=== PATIENT | female | born 1995 | race American Indian/Alaskan Native ===

== ENCOUNTER → 2019-05-03 10:34 | Outpatient (CLI) | payer OTHER, SELFPAY ==
[2019-05-03 13:13] LABS: Urine N gonorrhoeae NOT DETECTED
[2019-05-03 13:45] LABS: Urine Chlamydia DETECTED
== END ==
PROVIDERS: PCP Physician Assistant; Visit Provider Physician Assistant
DX: R30.0 Dysuria (principal)
CPT/HCPCS: 87491; 87591

== ENCOUNTER 2020-05-27 10:36 | Emergency (ER) | payer OTHER, SELFPAY ==
[2020-05-27 10:38] VITALS: BP 123/91; PULSE 100; RESP 15; TEMP 37.1; O2SAT 99; BMI 23.0
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
[2020-05-27] MEDS: BACITRACIN OINT 0.9 GM PCKT 1 APPLIC TOP (12:43)
[2020-05-27] MEDS: IBUPROFEN 400 MG TABLET 800 MG PO (12:43)
[2020-05-27] MEDS: TET,DIPH,PERTUSS(ACELL),VAC/PF 0.5 ML SYRINGE IM (12:44)
[2020-05-27 14:04] VITALS: BP 120/70; PULSE 85; RESP 16; O2SAT 99
== END 2020-05-27 14:05 | disposition home or self-care (01) ==
PROVIDERS: Emergency Provider Nurse Practitioner; PCP Physician Assistant
DX: S81.811A Laceration without foreign body, right lower leg, initial encounter (principal); S62.101A Fracture of unspecified carpal bone, right wrist, initial encounter for closed fracture; V19.9XXA Pedal cyclist (driver) (passenger) injured in unspecified traffic accident, initial encounter; Z23 Encounter for immunization
CPT/HCPCS: 29125; 73110; 73590; 90471; 99283; 99284; 90715

== ENCOUNTER → 2020-10-02 14:00 | Outpatient (CLI) | payer MEDICAID, OTHER, SELFPAY ==
[2020-10-02 15:26] LABS: Appearance Urine UA CLEAR; Bilirubin Urine UA NEGATIVE (NEGATIVE); Color Urine UA YELLOW; Glucose Urine UA NEGATIVE (Negative); Ketones Urine UA NEGATIVE (NEGATIVE); Leukocyte Esterase Urine UA NEGATIVE (NEGATIVE); Nitrite Urine UA NEGATIVE (Negative); Occult Blood Urine UA NEGATIVE (Negative); Protein Urine UA NEGATIVE (Negative); Specific Gravity Urine UA <=1.005 (1.000-1.035); Urobilinogen Urine UA 0.2 E.U./dL (0.2)
[2020-10-02 15:46] LABS: Alanine Aminotransferase 28 IU/L (<35); Albumin 3.9 g/dL (3.5-5.0); Albumin Globulin Ratio 1.2 (1.0-2.8); Alkaline Phosphatase 74 U/L (38-126); Aspartate Aminotransferase 28 IU/L (14-36); BUN Creatinine Ratio 9.3 (6-22); Bilirubin Total 0.3 mg/dL (0.2-1.3); Blood Urea Nitrogen 5 mg/dL (7-17); Calcium 8.7 mg/dL (8.4-10.2); Carbon Dioxide 28 mmol/L (22-32); Chloride 103 mmol/L (98-107); Estimated Glomerular Filt Rate > 60.0 mL/min (>60); Globulin 3.2 g/dL (1.7-4.1); Glucose 98 mg/dL (70-100); HEMOLYSIS < 15 (0-50); Lactate Dehydrogenase 378 U/L (313-618); Potassium 4.1 mmol/L (3.4-5.1); Sodium 135 mmol/L (137-145); Total Protein 7.1 g/dL (6.3-8.2); Uric Acid 2.7 mg/dL (2.5-6.2)
[2020-10-02 16:24] LABS: Protein (Total) Urine Random 15 mg/dL (0-12)
[2020-10-02 16:27] LABS: Creatinine Urine Random 61.4 mg/dL; Protein Creatinine Ratio Urine 0.24 GRAM/24H
[2020-10-02 16:54] LABS: Urine N gonorrhoeae NOT DETECTED
[2020-10-02 17:27] LABS: Urine Chlamydia NOT DETECTED
[2020-10-02 17:57] LABS: HIV 1 & 2 Ab/Ag 4th Gen Combo NEGATIVE (NEGATIVE); Hep C Virus Ab w/Reflex Quant NEGATIVE s/c (NEGATIVE)
[2020-10-03 14:10] LABS: Complement C3 92 mg/dL (82-167); DNA (DS) Antibody <1 IU/mL (0-9); Varicella IgG Antibody <135 index (Immune >165)
[2020-10-05 10:11] LABS: Dilute Russell Viper Venom 33.1 sec (0.0-47.0); Lupus Reflex Interpretation Comment: (.)
[2020-10-05 12:36] LABS: SS A Ro Sjogrens Antibody > 8.0 AI (0.0-0.9); SS B La Sjogrens Antibody > 8.0 AI (0.0-0.9)
[2020-10-05 14:08] LABS: Cardiolipin Ab IgG <9 GPL U/mL (0-14); Cardiolipin Ab IgM 10 MPL U/mL (0-12)
== END ==
PROVIDERS: PCP Physician Assistant; Referring Provider Obstetrics & Gynecology; Visit Provider Obstetrics & Gynecology
DX: Z34.01 Encounter for supervision of normal first pregnancy, first trimester (principal); M32.9 Systemic lupus erythematosus, unspecified; Z3A.10 10 weeks gestation of pregnancy
CPT/HCPCS: 80053; 81003; 82570; 83615; 84156; 84550; 85598; 85613; 86160; 86225; 86235; 86787; 86803; 87086; 87389; 87491; 87591

== ENCOUNTER → 2021-01-29 11:50 | Outpatient (CLI) | payer MEDICAID, OTHER, SELFPAY ==
[2021-01-29 12:49] LABS: Alanine Aminotransferase 26 IU/L (<35); Albumin 3.1 g/dL (3.5-5.0); Albumin Globulin Ratio 0.9 (1.0-2.8); Alkaline Phosphatase 130 U/L (38-126); Aspartate Aminotransferase 31 IU/L (14-36); BUN Creatinine Ratio 11.3 (6-22); Bilirubin Total 0.2 mg/dL (0.2-1.3); Blood Urea Nitrogen 6 mg/dL (7-17); Calcium 8.6 mg/dL (8.4-10.2); Carbon Dioxide 21 mmol/L (22-32); Chloride 107 mmol/L (98-107); Estimated Glomerular Filt Rate > 60.0 mL/min (>60); Globulin 3.3 g/dL (1.7-4.1); Glucose 90 mg/dL (70-100); HEMOLYSIS < 15 (0-50); Lactate Dehydrogenase 428 U/L (313-618); Potassium 4.1 mmol/L (3.4-5.1); Sodium 133 mmol/L (137-145); Total Protein 6.4 g/dL (6.3-8.2)
[2021-01-29 13:30] LABS: Add Manual Diff / Slide Review NO; Basophils Absolute Auto 0 /uL (0-100); Basophils Percent Auto 0.1 % (0-2); Eosinophils Absolute Auto 100 /uL (0-450); Hematocrit 32.3 % (36-46); Hemoglobin 10.8 g/dL (12.0-16.0); Lymphocytes Absolute Auto 400 /uL (1100-4500); Lymphocytes Percent Auto 5.9 % (25-40); Mean Corpuscular HGB Conc 33.5 % (30-36); Mean Corpuscular Hemoglobin 30.8 PG (26-34); Monocytes Absolute Auto 700 /uL (0-900); Neutrophils Absolute Auto 5600 /uL (1500-7000); Platelet Count 369 X10^3/uL (150-400); Red Blood Cell Count 3.51 X10^6/uL (4.0-5.2); Red Cell Distribution Width 12.8 % (11.6-14.8); White Blood Cell Count 6.8 X10^3/uL (4.5-11.0)
[2021-01-29 14:00] LABS: GTT (PREG) 1 Hour PP 50gm Dose 88 mg/dL (76-139)
[2021-01-29 15:26] LABS: Creatinine Urine Random 46.5 mg/dL; Protein (Total) Urine Random 12 mg/dL (0-12); Protein Creatinine Ratio Urine 0.25 GRAM/24H
== END ==
PROVIDERS: PCP Physician Assistant; Referring Provider Obstetrics & Gynecology; Visit Provider Obstetrics & Gynecology
DX: M32.9 Systemic lupus erythematosus, unspecified (principal)
CPT/HCPCS: 80053; 82570; 82950; 83615; 84156; 84550; 85025

== ENCOUNTER → 2021-02-19 10:32 | Outpatient (CLI) | payer MEDICAID, OTHER, SELFPAY ==
[2021-02-20 07:41] LABS: Candida species Negative (Negative); Gardnerella vaginalis Positive (Negative); Trichomoas vaginalis Negative (Negative)
== END ==
PROVIDERS: PCP Physician Assistant; Visit Provider Obstetrics & Gynecology
DX: O26.893 Other specified pregnancy related conditions, third trimester (principal); N89.8 Other specified noninflammatory disorders of vagina; Z3A.30 30 weeks gestation of pregnancy
CPT/HCPCS: 87480; 87510; 87660

== ENCOUNTER 2021-02-19 10:43 | Outpatient (CLI) | payer MEDICAID, OTHER, SELFPAY | END 2021-02-19 11:35 | disposition home or self-care (01) | LOC: LABOR 11:01 → OB 02-20 07:11 | PROVIDERS: PCP Physician Assistant; Referring Provider Obstetrics & Gynecology; Visit Provider Obstetrics & Gynecology | DX: O26.893 Other specified pregnancy related conditions, third trimester (principal); N89.8 Other specified noninflammatory disorders of vagina; Z3A.30 30 weeks gestation of pregnancy | CPT/HCPCS: 59025; 87480; 87510; 87660; G0378; G0379 ==

== ENCOUNTER 2021-03-20 16:04 | Outpatient (CLI) | payer MEDICAID, OTHER, SELFPAY ==
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
== END 2021-03-20 17:01 | disposition home or self-care (01) ==
LOC: LABOR 16:33 → OB 03-21 07:38
PROVIDERS: PCP Physician Assistant; Referring Provider Obstetrics & Gynecology; Visit Provider Obstetrics & Gynecology
DX: O26.893 Other specified pregnancy related conditions, third trimester (principal); Z86.2 Personal history of diseases of the blood and blood-forming organs and certain disorders involving the immune mechanism; Z3A.35 35 weeks gestation of pregnancy
CPT/HCPCS: 59025; G0378; G0379

== ENCOUNTER → 2021-03-26 16:12 | Outpatient (CLI) | payer OTHER, MEDICAID, SELFPAY ==
[2021-03-27 16:27] LABS: Strep Grp B PCR NEG for Grp B Strep
== END ==
PROVIDERS: PCP Physician Assistant; Visit Provider Obstetrics & Gynecology
DX: Z34.03 Encounter for supervision of normal first pregnancy, third trimester (principal); Z3A.35 35 weeks gestation of pregnancy
CPT/HCPCS: 87653

== ENCOUNTER 2021-03-26 17:17 | Outpatient (CLI) | payer MEDICAID, OTHER, SELFPAY ==
[2021-03-26 17:55] LABS: Add Manual Diff / Slide Review NO; Basophils Absolute Auto 0 /uL (0-100); Basophils Percent Auto 0.5 % (0-2); Eosinophils Absolute Auto 100 /uL (0-450); Eosinophils Percent Auto 2.6 % (2-4); Hematocrit 32.6 % (36-46); Lymphocytes Absolute Auto 400 /uL (1100-4500); Lymphocytes Percent Auto 7.7 % (25-40); Mean Corpuscular HGB Conc 33.8 % (30-36); Mean Corpuscular Hemoglobin 30.3 PG (26-34); Mean Corpuscular Volume 89.9 fL (80-100); Monocytes Absolute Auto 600 /uL (0-900); Monocytes Percent Auto 10.7 % (3-14); Neutrophils Absolute Auto 4300 /uL (1500-7000); Neutrophils Percent Auto 78.5 % (50-75); Platelet Count 338 X10^3/uL (150-400); Red Blood Cell Count 3.63 X10^6/uL (4.0-5.2); Red Cell Distribution Width 13.9 % (11.6-14.8); White Blood Cell Count 5.4 X10^3/uL (4.5-11.0)
[2021-03-26 18:29] LABS: Aspartate Aminotransferase 25 IU/L (14-36); BUN Creatinine Ratio 9.1 (6-22); Blood Urea Nitrogen 4 mg/dL (7-17); Estimated Glomerular Filt Rate > 60.0 mL/min (>60); Uric Acid 2.6 mg/dL (2.5-6.2)
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
== END 2021-03-26 19:00 | disposition home or self-care (01) ==
LOC: OB 03-27 09:39
PROVIDERS: PCP Physician Assistant; Referring Provider Obstetrics & Gynecology; Visit Provider Obstetrics & Gynecology
DX: O13.3 Gestational [pregnancy-induced] hypertension without significant proteinuria, third trimester (principal); O26.893 Other specified pregnancy related conditions, third trimester; Z87.39 Personal history of other diseases of the musculoskeletal system and connective tissue; Z3A.35 35 weeks gestation of pregnancy
CPT/HCPCS: 59025; 84450; 84550; 85025; 87653; G0378; G0379

== ENCOUNTER 2021-04-12 14:25 | Outpatient (CLI) | payer MEDICAID, OTHER, SELFPAY | END 2021-04-12 15:02 | disposition home or self-care (01) | LOC: LABOR 15:02 → OB 04-16 14:45 | PROVIDERS: PCP Physician Assistant; Referring Provider Obstetrics & Gynecology; Visit Provider Obstetrics & Gynecology | DX: O16.3 Unspecified maternal hypertension, third trimester (principal); Z3A.38 38 weeks gestation of pregnancy | CPT/HCPCS: 59025; G0378; G0379 ==

== ENCOUNTER 2021-04-16 16:54 | Outpatient (CLI) | payer MEDICAID, OTHER, SELFPAY | END 2021-04-16 17:30 | disposition home or self-care (01) | LOC: LABOR 17:00 → OB 04-17 12:26 | PROVIDERS: PCP Physician Assistant; Referring Provider Obstetrics & Gynecology; Visit Provider Obstetrics & Gynecology | DX: O13.3 Gestational [pregnancy-induced] hypertension without significant proteinuria, third trimester (principal); Z3A.38 38 weeks gestation of pregnancy | CPT/HCPCS: 59025; G0378; G0379 ==

== ENCOUNTER 2021-04-23 22:30 | Inpatient (IN) | payer MEDICAID, SELFPAY ==
[2021-04-23] MEDS: ZOLPIDEM 5 MG TABLET PO (23:00)
[2021-04-23] MEDS: DINOPROSTONE VAG (CERVIDIL) 10 MG VAG (23:00)
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
[2021-04-24 01:25] LABS: Add Manual Diff / Slide Review NO; Basophils Absolute Auto 0 /uL (0-100); Basophils Percent Auto 0.5 % (0-2); Eosinophils Absolute Auto 100 /uL (0-450); Eosinophils Percent Auto 2.4 % (2-4); Hematocrit 34.4 % (36-46); Hemoglobin 11.6 g/dL (12.0-16.0); Lymphocytes Absolute Auto 400 /uL (1100-4500); Lymphocytes Percent Auto 8.7 % (25-40); Mean Corpuscular HGB Conc 33.7 % (30-36); Mean Corpuscular Hemoglobin 30.2 PG (26-34); Mean Corpuscular Volume 89.8 fL (80-100); Monocytes Absolute Auto 500 /uL (0-900); Monocytes Percent Auto 10.2 % (3-14); Neutrophils Absolute Auto 3400 /uL (1500-7000); Neutrophils Percent Auto 78.2 % (50-75); Platelet Count 312 X10^3/uL (150-400); Red Blood Cell Count 3.83 X10^6/uL (4.0-5.2); Red Cell Distribution Width 14.1 % (11.6-14.8); White Blood Cell Count 4.4 X10^3/uL (4.5-11.0)
[2021-04-24 02:41] LABS: COVID19 - ADMIT (NP swab/PCR) Negative (Negative)
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
[2021-04-24] MEDS: LACTATED RINGERS 1,000 ML 100 ML IV ×2 (08:45→19:25)
[2021-04-24] MEDS: OXYTOCIN PREMIX 30 UNIT/500 ML PLAST..BAG IV (08:46)
--- NOTE | 2021-04-24 10:35 | PM.OBPNLAB ---
Date/Time Date Patient Seen: 04/24/21 Time Patient Seen: 10:35 Pain Control Comments: Tolerating with some coaching Pelvic Exam Dilation (cm): 3 Effacement (%): 80 station: -1 Amniotic membrane status: Ruptured (AROM, clear fluid) Contractions Pitocin rate (mU/min): 9 Contraction frequency (min): 2 Contraction duration (min): 1 Status status: Category l Heart Rate Baseline: 135 Monitor Accelerations: Present Monitor Decelerations: Absent Monitor Variability: Moderate Assessment and Plan Assessment: induction ongoing Plan: continuous present management Comments: epidural on request
--- NOTE | 2021-04-24 13:33 | PM.OBPNLAB ---
Date/Time Date Patient Seen: 04/24/21 Time Patient Seen: 13:20 Pain Control Pain control: epidural Comments: patient feeling pressure with contractions, discussed that this is normal. Pelvic Exam Dilation (cm): 5 Effacement (%): 80 station: -1 Amniotic membrane status: Leaking (clear fluid) Contractions Pitocin rate (mU/min): 12 Contraction frequency (min): 2 Status status: Category l Heart Rate Baseline: 125 Monitor Accelerations: Absent Monitor Decelerations: Early Monitor Variability: Moderate Assessment and Plan Assessment: induction ongoing Plan: continuous present management Comments: Patient repositioned with peanut ball in place. Copious movement with transition between ANDRES, LOT, LOP during cervical exam- for frequent repositioning. Patient extremely anxious about feeling pressure, discussed that some is normal and unavoidable, discussed attempting to relax pelvic floor.
--- NOTE | 2021-04-24 15:26 | PM.OBPNLAB ---
Date/Time Date Patient Seen: 04/24/21 Time Patient Seen: 15:26 Pain Control Pain control: epidural Comments: Feeling pressure and coping poorly with this pressure, discussed etiology of pressure. Pelvic Exam Dilation (cm): 6 Effacement (%): 100 station: -1 Amniotic membrane status: Leaking (clear fluid) Contractions Contractions on admission: none Pitocin rate (mU/min): 9 Contraction frequency (min): 2 Status status: Category l Heart Rate Baseline: 120 Monitor Accelerations: Present Monitor Decelerations: Early Monitor Variability: Moderate Assessment and Plan Assessment: induction ongoing Plan: continuous present management Comments: For epidural bolus
[2021-04-24 19:36] VITALS: BP 111/62; PULSE 96; RESP 13; TEMP 36.6; O2SAT 100
[2021-04-24 19:41] VITALS: BP 111/65; PULSE 87; RESP 19; O2SAT 100
[2021-04-24 19:46] VITALS: BP 102/57; PULSE 83; RESP 15; O2SAT 100
--- NOTE | 2021-04-24 19:46 | SUR.OPER ---
Supine on Padded OR bed, head on pillow, safety belt at thigh, arms secured on padded arm boards at <90 degrees abduction. Bump under right buttock. Legs uncrossed with pillow under knees, gel pad to heels, tape over blanket to lower legs.
[2021-04-24 19:51] VITALS: BP 104/58; PULSE 85; RESP 13; O2SAT 100
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
--- NOTE | 2021-04-24 20:06 | SUR.PHASEI ---
pt easily arrousable in PACU. denies pain. able to wiggle toes, CMS intact. unable to bend knees. fundus firm at umbilicus. Report to Zully BERNSTEIN. Pt transported to room 1.
--- NOTE | 2021-04-24 20:21 | PM.OBCS.1 ---
Operative Date/Time/Diagnoses Date of procedure: 04/24/21 Time of procedure: 18:25 Pre-op diagnosis: cat 3 EFM Post-op diagnosis: same Procedure & Clinicians Procedure: emergent primary section Same procedure as scheduled: Yes Indications: prolonged bradycardia Surgeon: Lorna Licea Badger Distiller Operator: Kelsey Cook Reason for Badger Distiller Operator: assistance with emergent CS and delivery of fetus Anesthesia Type: Epidural (converted to general) Operative Notes Findings: normal uterus, tubes, and ovaries. Female infant in cephalic presentation, apgars 8+9, weight 7#5 Closure Type: primary Specimen(s): cord blood and cord pH Intraoperative meds administered: Acetaminophen, Hemabate and Pitocin Estimated Blood Loss (mL): 1,000 Blood products transfused: none Procedure in detail: EBL: 1000ccs Fluids:1200ccs LR UOP: 200ccs clear yellow urine Procedures: The patient was in active phase of labor at 8 cm dilated when she was noted to have a bradycardia to the 80s. After 6 minutes, the patient was emergently transferred to the operating room. She was transferred to the operating room table, and the heart rate confirmed to be in the 80s. She was emergently prepped with Betadine. A Pfannenstiel skin incision was made with a scalpel and carried through to the underlying layer of fascia. The fascia was incised in the midline and the incision extended bluntly. A Chito Esparza entry was performed with blunt separation of the rectus and entry into the peritoneum. The bladder blade and right angle were inserted, and the bladder and bladder flap visualized. A scalpel was used to make a hysterotomy 1cm above the bladder flap. The uterus was entered bluntly and the hysterotomy bluntly extended digitally. The retractors were removed, and the infant's head delivered atraumatically. A double loose nuchal cord was reduced. The cord was immediately clamped and cut, and handed off to the waiting pediatrics team. Cord pH was collected. The placenta was then removed spontaneously, and the uterus was exteriorized and cleared of all clots and debris. The uterine incision was repaired with 1-0 chromic in a running, locked fashion a 2nd layer of the same suture was used to obtain excellent hemostasis. The uterus was returned to the abdomen, and the gutters were cleared of all clots and debris. The peritoneum was closed with 3-0 Vicryl, and the fascia reapproximated with 0 Vicryl in a running fashion. The subcutaneous layer was placed with 3 0 Vicryl in an interrupted fashion and the skin was closed with 4-0 biosyn in a running fashion. The patient tolerated the procedure well. Prior to closure of the fascia, an x-ray was sterilely performed as an instrument count was not possible prior to the delivery. 2 g of Ancef were given when feasible during the case, and azithromycin was not available. The patient was taken to the recovery room in stable condition. Complications: none Baby 1: Gender: Female Presentation: vertex Position: Right Occiput Transverse Placental Delivery Description: Spontaneous Cord Vessel Description: Nuchal Cord (X2) score (1 min): 8 score (5 min): 9 weight: 7 lb 5 oz Post-operative Condition: stable Disposition: PACU Aftercare: routine postop
[2021-04-25] MEDS: KETOROLAC 30 MG/ML VIAL IV ×3 (01:08→13:06)
[2021-04-25] MEDS: OXYCODONE IR 10 MG TABLET PO ×2 (01:09→06:55)
[2021-04-25 06:53] LABS: Add Manual Diff / Slide Review NO; Basophils Absolute Auto 100 /uL (0-100); Basophils Percent Auto 0.5 % (0-2); Eosinophils Absolute Auto 0 /uL (0-450); Eosinophils Percent Auto 0.2 % (2-4); Hematocrit 23.2 % (36-46); Hemoglobin 7.8 g/dL (12.0-16.0); Lymphocytes Absolute Auto 500 /uL (1100-4500); Lymphocytes Percent Auto 3.7 % (25-40); Mean Corpuscular HGB Conc 33.7 % (30-36); Mean Corpuscular Hemoglobin 30.1 PG (26-34); Mean Corpuscular Volume 89.3 fL (80-100); Monocytes Absolute Auto 800 /uL (0-900); Monocytes Percent Auto 6.1 % (3-14); Neutrophils Absolute Auto 11000 /uL (1500-7000); Neutrophils Percent Auto 89.5 % (50-75); Platelet Count 231 X10^3/uL (150-400); Red Cell Distribution Width 14.1 % (11.6-14.8); White Blood Cell Count 12.3 X10^3/uL (4.5-11.0)
[2021-04-25] MEDS: SODIUM CHLORIDE 0.9% FLUSH 10 ML IV (06:54)
[2021-04-25] MEDS: ACETAMINOPHEN 325 MG TABLET 650 MG PO ×3 (06:55→20:02)
[2021-04-25 07:02] LABS: Alanine Aminotransferase 33 IU/L (<35); Albumin 2.1 g/dL (3.5-5.0); Albumin Globulin Ratio 0.9 (1.0-2.8); Alkaline Phosphatase 204 U/L (38-126); Aspartate Aminotransferase 83 IU/L (14-36); BUN Creatinine Ratio 9.7 (6-22); Bilirubin Total 0.5 mg/dL (0.2-1.3); Blood Urea Nitrogen 7 mg/dL (7-17); Calcium 7.7 mg/dL (8.4-10.2); Carbon Dioxide 23 mmol/L (22-32); Chloride 106 mmol/L (98-107); Estimated Glomerular Filt Rate > 60.0 mL/min (>60); Globulin 2.3 g/dL (1.7-4.1); Glucose 77 mg/dL (70-100); HEMOLYSIS < 15 (0-50); Potassium 3.7 mmol/L (3.4-5.1); Sodium 131 mmol/L (137-145); Total Protein 4.4 g/dL (6.3-8.2)
--- NOTE | 2021-04-25 11:39 | P.PNOB_ITS ---
Subjective - OB Subjective Patient comments: pain well controlled, tolerating diet and flatus present baby status: doing well feeding status: exclusively breast feeding Narrative: This patient is a 25-year-old postop day 1 status post emergent section for prolonged bradycardia. This morning, patient reports feeling well, good pain control on p.o. medications. Has ambulated, passing flatus, voiding, mild lochia. Has tolerated p.o.. We discussed the circumstances around her section at length, and the patient and her partner vocalized understanding. Patient is doing well. Date Patient Seen: 04/25/21 Time Patient Seen: 11:20 Exam Vital Signs (past 8 hours): 119/67, HR 76 Oxygen Delivery Method Room Air Const General: cooperative, healthy appearing, comfortable and well groomed Resp Effort & Inspection: normal respiratory effort Auscultation: clear to auscultation bilaterally Cardio Rate: regular rate Rhythm: regular rhythm GI Inspection: incision (c/d/i, covered by aquacell) Palpation: soft and No tender Extrem General: normal to inspection Objective Labs Result Diagrams: 04/25/21 06:37 04/25/21 06:37 Labs: Laboratory Results - last 24 hr 04/25/21 04/25/21 06:37 06:37 WBC 12.3 H D RBC 2.60 L Hgb 7.8 L Hct 23.2 L MCV 89.3 MCH 30.1 MCHC 33.7 RDW 14.1 Plt Count 231 Neut % (Auto) 89.5 H Lymph % (Auto) 3.7 L [place] % (Auto) 6.1 Eos % (Auto) 0.2 L Baso % (Auto) 0.5 Neut # (Auto) 50047 H Lymph # (Auto) 500 L [place] # (Auto) 800 Eos # (Auto) 0 Baso # (Auto) 100 Sodium 131 L Potassium 3.7 Chloride 106 Carbon Dioxide 23 BUN 7 Creatinine 0.72 Estimated GFR > 60.0 BUN/Creatinine Ratio 9.7 Glucose 77 Calcium 7.7 L Total Bilirubin 0.5 AST 83 H ALT 33 Alkaline Phosphatase 204 H Total Protein 4.4 L Albumin 2.1 L Globulin 2.3 Albumin/Globulin Ratio 0.9 L Assessment & Plan Plan day: 1 plan OB: routine postop care Comments: Patient doing well this AM, meeting postop goals with no signs or symptoms of infection PIH. Patient has history of lupus, already ambulatory, thin, the CTs in place while stationary, and hemoglobin drop and emergent section but will encourage ambulation STDs but avoid postoperative Lovenox due to concern for hematoma and occult intra-abdominal bleeding. Time Spent With Patient Time: Total time spent is greater than 50% in coordination of care (as documented) at patient's floor/unit and/or counseling patient: Time with patient: 15-24 minutes
[2021-04-25] MEDS: LANOLIN OINT 7 GM 1 APPLIC TOP (13:06)
[2021-04-25] MEDS: DOCUSATE 250 MG CAPSULE PO (13:07)
[2021-04-25] MEDS: IBUPROFEN 600 MG TABLET PO (20:02)
[2021-04-26] MEDS: IBUPROFEN 600 MG TABLET PO ×2 (04:15→14:00)
[2021-04-26] MEDS: ACETAMINOPHEN 325 MG TABLET 650 MG PO ×2 (04:15→14:00)
[2021-04-26 11:55] VITALS: BP 120/72; PULSE 83; RESP 17; TEMP 36.3
[2021-04-26] MEDS: MEASLES,MUMPS,RUBELLA VACC/PF 0.5 ML VIAL SUBCUT (14:40)
[2021-04-26] MEDS: DOCUSATE 250 MG CAPSULE PO (14:43)
--- NOTE | 2021-04-26 15:27 | P.DS_ITS ---
Discharge Providers Provider Date of admission: 04/23/21 22:30 Discharge Date: 04/26/21 Primary care physician: Angeles Maldonado PA-C Consults: 04/24/21 23:30 Consult to Apple Picking Supervisor Routine Comment: Discharge provider: Lorna Licea MD Summary Hospital Course Date Patient Seen: 04/26/21 Time Patient Seen: 09:20 Diagnoses: Lupus, emergent section Hospital Course: This patient is a 25-year-old postop day 2 status post emergent section at 8 cm dilation in the setting of a double nuchal cord and prolonged bradycardia. The patient was delivered of a healthy baby girl and her surgery was ultimately uncomplicated, post operative course has been uneventful. She is discharged today with routine precautions and follow-up. PIH precautions stressed given history of lupus. Peripartum Data Delivery Method: Section [place] 1: Gender: Female Disposition of : home Status at Discharge Cognitive/behavioral status at discharge: oriented Functional status at discharge: independent ambulation Overall status at discharge: patient is progressing back to baseline Time Spent with Patient Time attestation: Total time spent providing and/or coordinating discharge services: Time spent: Greater than 30 minutes Objective Labs Result Diagrams: 04/25/21 06:37 04/25/21 06:37 Exam Vital Signs (past 8 hours): -132/70, heart rate 83, afebrile 04/26/21 11:55 Temperature 97.4 F L Pulse Rate 83 Respiratory Rate 17 Blood Pressure 120/72 Oxygen Delivery Method Room Air Narrative Exam Narrative: Patient resting in bed, sleeping. Reports poor sleep overnight secondary to awake baby. Mild lochia, ambulating, voiding, passing flatus. G ood pain control. Tolerating p.o.. No PIH symptoms. Reports leg swelling yesterday that has improved today. No chest pain, trouble breathing, no other symptoms. Const General: cooperative, comfortable and well groomed Orientation: alert, awake and oriented x3 Resp Effort & Inspection: normal respiratory effort Auscultation: clear to auscultation bilaterally Cardio Rate: regular rate Rhythm: regular rhythm GI Inspection: incision (Clean, dry, intact, covered by Aquacel) Palpation: soft and No tender Skin General: no rashes or lesions noted Extrem General: normal to inspection Discharge Plan Discharge Plan Patient Disposition: Home Discharge orders & Medications Prescriptions: New oxycodone 5 mg tablet 5 mg PO Q6H PRN (Reason: pain) Qty: 14 RF: 0 Continued prenat.vits,destini,pra-zfis-qhehx Tablet 1 tab PO DAILY RF: 0 Follow up/Referrals: Lorna Licea MD [Physician] - 1 Week (Post follow up appointment with Dr. Licea on 05/03/2021 @ 1145am) Angeles Maldonado PA-C [Primary Care Provider] - Diet/Activity/Treatments Diet: Regular Activity: Nothing in the vagina for 6 weeks. No lifting more than 10 lbs for 6 weeks. If you have increasing bleeding, fevers, chills, nausea, vomiting, abdominal pain, chest pain, headaches, visual changes, or any other symptoms, call or come to the emergency room. Skin/Wound/Dressing Care Report to your healthcare provider any signs of infection, such as:: chills, fever, night sweats, increased pain, unusual drainage and unusual redness Visit Report/Discharge Packet Instructions: DI for , DI for Prescription Opioid Use Stand Alone Forms: Discharge: Care Discharge Data Primary Care Provider: Angeles Maldonado
== END 2021-04-26 15:00 | disposition home or self-care (01) | DRG 788 ==
PROVIDERS: Admitting Provider Obstetrics & Gynecology; PCP Physician Assistant; Referring Provider Obstetrics & Gynecology; Visit Provider Obstetrics & Gynecology
PROC: 10D00Z1 Extraction of Products of Conception, Low, Open Approach (ICD-10-PCS; CPT 59514; principal; 2021-04-24 17:15)
DX: O76 Abnormality in fetal heart rate and rhythm complicating labor and delivery (principal); Z3A.40 40 weeks gestation of pregnancy; Z37.0 Single live birth; O69.81X0 Labor and delivery complicated by cord around neck, without compression, not applicable or unspecified; O99.891 Other specified diseases and conditions complicating pregnancy; M32.9 Systemic lupus erythematosus, unspecified; Z20.822 Contact with and (suspected) exposure to COVID-19; O48.0 Post-term pregnancy
CPT/HCPCS: 01967; 01968; 36415; 59050; 59514; 59515; 72170; 76000; 80053; 85025; 86850; 86900; 86901; 87635; C9803; G0379; J1885; J2274; J2405; J2590; J2765; J3010

== ENCOUNTER 2022-05-13 22:29 | Emergency (ER) | payer OTHER, MEDICAID, SELFPAY ==
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
[2022-05-13 22:36] VITALS: BP 135/89; PULSE 122; RESP 19; TEMP 36.6; O2SAT 98; BMI 26.5
[2022-05-13 22:55] LABS: Add Manual Diff / Slide Review NO; Basophils Absolute Auto 0 /uL (0-100); Basophils Percent Auto 0.5 % (0-2); Eosinophils Absolute Auto 0 /uL (0-450); Eosinophils Percent Auto 0.7 % (2-4); Hematocrit 40.4 % (36-46); Hemoglobin 13.6 g/dL (12.0-16.0); Lymphocytes Absolute Auto 400 /uL (1100-4500); Lymphocytes Percent Auto 5.5 % (25-40); Mean Corpuscular HGB Conc 33.7 % (30-36); Mean Corpuscular Hemoglobin 29.9 PG (26-34); Mean Corpuscular Volume 88.7 fL (80-100); Monocytes Absolute Auto 400 /uL (0-900); Monocytes Percent Auto 6.2 % (3-14); Neutrophils Absolute Auto 5800 /uL (1500-7000); Neutrophils Percent Auto 87.1 % (50-75); Platelet Count 305 X10^3/uL (150-400); Red Blood Cell Count 4.55 X10^6/uL (4.0-5.2); Red Cell Distribution Width 13.2 % (11.6-14.8); White Blood Cell Count 6.7 X10^3/uL (4.5-11.0)
[2022-05-13 22:56] LABS: Appearance Urine UA CLEAR; Bilirubin Urine UA NEGATIVE (NEGATIVE); Color Urine UA YELLOW; Glucose Urine UA NEGATIVE (Negative); Ketones Urine UA TRACE (NEGATIVE); Leukocyte Esterase Urine UA TRACE (NEGATIVE); Nitrite Urine UA NEGATIVE (Negative); Occult Blood Urine UA NEGATIVE (Negative); Protein Urine UA 1+ (Negative); Urobilinogen Urine UA 0.2 E.U./dL (0.2)
[2022-05-13 22:57] LABS: pH Urine UA 6.5 (4.5-8.0)
[2022-05-13 22:59] LABS: UR Morphine/Opiate cutoff 300 Negative (Negative); Ur Creatinine Normal (Normal); Ur Specific Gravity Normal (Normal); Urine Amphetamines Negative (Negative); Urine Cocaine Negative (Negative); Urine Tetrahydrocannabinol Positive (Negative); Urine pH Normal (Normal)
[2022-05-13 23:00] LABS: Urine Barbiturates Negative (Negative); Urine Benzodiazepines Negative (Negative); Urine MDMA Negative (Negative); Urine Methadone Negative (Negative); Urine Methamphetamines Negative (Negative); Urine Oxycodone Negative (Negative); Urine Phencyclidine Negative (Negative); Urine Tricyclic Antidepressant Negative (Negative)
[2022-05-13 23:01] LABS: RBC Urine 0-1/HPF (0-5/HPF); WBC Urine 5-10/HPF (0-5/HPF)
[2022-05-13 23:02] LABS: Amorphous Sediment Urine 1+; Bacteria Urine Few (2-10); Calcium Oxalate Crystals Urine Few; Mucus Urine 1+ (Negative); Squamous Epithelial Cell Urine 1-5 /HPF (0-5/HPF)
[2022-05-13 23:03] LABS: Culture Indicated Urine Specimen Cultured
[2022-05-13 23:05] LABS: Alanine Aminotransferase 23 IU/L (<35); Albumin 4.5 g/dL (3.5-5.0); Albumin Globulin Ratio 1.3 (1.0-2.8); Alkaline Phosphatase 94 U/L (38-126); Aspartate Aminotransferase 22 IU/L (14-36); Bilirubin Total 0.3 mg/dL (0.2-1.3); Blood Urea Nitrogen 8 mg/dL (7-17); Calcium 8.5 mg/dL (8.4-10.2); Carbon Dioxide 22 mmol/L (22-32); Chloride 107 mmol/L (98-107); Estimated Glomerular Filt Rate > 60 mL/min (>60); Ethanol (ETOH) < 10 mg/dL; Globulin 3.4 g/dL (1.7-4.1); Glucose 118 mg/dL (70-100); HEMOLYSIS 21 (0-50); Potassium 3.8 mmol/L (3.4-5.1); Sodium 139 mmol/L (137-145); Total Protein 7.9 g/dL (6.3-8.2)
[2022-05-13 23:20] LABS: COVID19 -Nasal RAPID Negative (Negative)
[2022-05-14 07:18] VITALS: RESP 12
--- NOTE | 2022-05-14 12:15 | PC.NURSE ---
EMPLOYMENT INTERVIEWER in room with pt
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
[2022-05-14] MEDS: LORazepam 0.5 MG TABLET 1 MG PO (17:49)
--- NOTE | 2022-05-14 18:02 | CM.SWNOTE ---
FINANCIAL COORDINATOR Note FINANCIAL COORDINATOR dispatches DCR and Cere (Ph. # [phone]) is assigned. Patient presents as tearful and endorses concern for court date with [facility] court tomorrow, and states I will be arrested if I don't go patient also endorses court date the day after tomorrow but states she is not sure what court, possibly [facility]. FINANCIAL COORDINATOR attempts to call [facility] court but there is not a way to leave VM. FINANCIAL COORDINATOR conducts [place] court search with patient's name and identifies future court dates for patient in June, FINANCIAL COORDINATOR prints this information and provides it to patient. Patient presents as tearful due to concern for missing upcoming visits with her daughter this week. Patient endorses she would like access to her phone. FINANCIAL COORDINATOR reviews this with DCR and ED provider, ED provider endorses she will prescribe ativan but does not believe it is appropriate for patient to have her phone at this time. DCR states that she plans to contact patient's therapist. Plan: Patient to meet with DCR for further assessment. RANDALL Ohara
--- NOTE | 2022-05-14 18:34 | PC.NURSE ---
speaking with DCR @[phone] via iPad
--- NOTE | 2022-05-14 20:06 | CM.SWNOTE ---
AESTHETICS INSTRUCTOR Note DCR Cere identifies safety plan with patient. Patient agrees to meet with [facility] team, call therapist and cousin when having thoughts of self harm. AESTHETICS INSTRUCTOR calls mother and mother agrees to picket [employer] patient upon d/c and can arrive at [phone] AESTHETICS INSTRUCTOR calls patient's therapist with patient's consent regarding this d/c plan. Safety plan will also be in patient's file. Safey plan includes: -parents to get ride of sharp objects and weapons in house. (AESTHETICS INSTRUCTOR calls patient's mother and discusses this with her, she indicates agreement and understanding) -Patient to call A crisis line when needed -patient to use CBT tools -patient to exercise or walk as needed -patient to contact therapist or cousin when having thoughts of self harm -patient agrees to talk with OT volunteer crisis team -patient to call friend for help and support -patient to work on taking prescribed medication -patient to call 911 when not following safety plan and in need of help SELENE -patient to set up visits with child. AESTHETICS INSTRUCTOR reviews this with ED provider Dr. Montoya. Plan: patient to d/c to home with safety plan upon medical clearance for d/c, patient to f/u with therapist. RANDALL Ohara
[2022-05-14 20:25] VITALS: BP 131/63; PULSE 105; RESP 18; O2SAT 97
== END 2022-05-14 20:35 | disposition home or self-care (01) ==
PROVIDERS: Emergency Medicine; Emergency Provider Emergency Medicine; PCP Physician Assistant
DX: F32.A Depression, unspecified (principal); Z20.822 Contact with and (suspected) exposure to COVID-19
CPT/HCPCS: 80053; 80305; 80320; 81001; 81025; 85025; 87086; 87635; 93005; 99284; C9803